=== PATIENT | male | born 1990 | race African-American/Black ===

== ENCOUNTER 2020-08-12 16:25 | Emergency (ER) | payer OTHER ==
[~2020-08-12] VITALS: Ht 175.3 cm; Wt 63.5 kg
[2020-08-12] MEDS ORDERED: REMERON15 M2 PO (17:22)
[2020-08-12 18:09] VITALS: BP 114/68
[2020-08-12] MEDS ORDERED: CYCLOBENZAPRINE5 MG PO (18:18)
[2020-08-12] MEDS ORDERED: MEDROLDOSEPACK PO (18:18)
[2020-08-12] MEDS ORDERED: NORCO5 PO (18:18)
== END 2020-08-12 18:32 | disposition home or self-care (01) ==
LOC: ER 16:25
DX: M54.41 Lumbago with sciatica, right side (principal); Z79.899 Other long term (current) drug therapy